=== PATIENT | female | born 1965 | race Two or more races ===

== ENCOUNTER 2025-02-21 05:59 | Emergency (ER) | payer OTHER, SELFPAY ==
--- NOTE | ~2025-02-21 | XR_ITS ---
EXAMINATION: XR KNEE 4 OR MORE VIEWS LEFT HISTORY: pain COMPARISON: There are no prior studies available for comparison. FINDINGS: Five views of the left knee are submitted. Osseous mineralization is normal. There is no fracture or dislocation. There is mild narrowing of the medial patellofemoral compartments. The soft tissues are unremarkable. There is no joint effusion. XR/XR knee LT 4V IMPRESSION: Mild narrowing of the medial and patellofemoral compartments. Electronically signed by: Richard Machado MD 02/21/2025 08:35 AM EDT
--- NOTE | ~2025-02-21 | CT_ITS ---
EXAMINATION: CT HEAD WITHOUT IV CONTRAST HISTORY: worsening headaches. TECHNIQUE: Unenhanced helical CT of the head was performed per standard departmental protocol. Coronal and sagittal reformats of the head were also evaluated. One or more of the following techniques was used for dose reduction: Automated exposure control, adjustment of the mA and/or kV according to patient size, use of iterative reconstruction technique. DLP: 710 mGy-cm COMPARISON: There are no prior studies available for comparison. FINDINGS: BRAIN: The brain parenchyma is unremarkable. There is normal perdomo/white differentiation. The ventricular system is normal in size and configuration. There is no mass effect or midline shift. No intra- or extra-axial fluid collections are identified. SINUSES: The visualized paranasal sinuses are clear. The mastoid air cells and middle ear cavities are well pneumatized. ORBITS: The visualized orbits are unremarkable. BONES/SOFT TISSUES: The extracranial soft tissues are unremarkable. The calvarium is intact. No suspicious lytic or sclerotic lesions. CT/CT head/brain wo IV con IMPRESSION: Unremarkable unenhanced head CT. Electronically signed by: Richard Machado MD 02/21/2025 08:07 AM EDT
[2025-02-21 06:04] VITALS: BP 141/80; PULSE 59; RESP 20; TEMP 36.4; O2SAT 98; BMI 36.7
--- NOTE | 2025-02-21 07:09 | ED_ITS ---
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 She denies trauma, fevers, weakness. Sometimes the pain is so bad she feels her arm tingling. She has not had a fever, rash, no travel and no tick bites reported. She came today as the pain was worsening. She notes the pain is sharp at times and comes and goes. She feels it makes her head hurt on the L side and then her eye has a lot of pain. No vision changes reported. complaint: L body side pain Onset (ago): month(s) (1) Location: head, left, upper extremity and lower extremity Radiation: distal Severity: moderate Quality: aching and constant Pain Consistency: intermittent Relieving factors: none Exacerbating factors: movement Associated symptoms: headaches Treatments prior to arrival: other (tylenol) Related Data Previous Rx's ?Medication ?Instructions ?Recorded methocarbamol 500 mg tablet 500 mg PO TID PRN muscle s pasm #20 02/21/25 tabs Allergies Allergy/AdvReac Type Severity Reaction Status Date / Time No Known Allergies Allergy Verified 02/21/25 06:05 Review of Systems 2 Review of Systems: Constitutional : No Fever, No Chills, No Fatigue ENT/Mouth : No sore throat, No Rhinorrhea Eyes: No Eye Pain, No Swelling, No Redness Cardiovascular : No Chest Pain, No SOB, No Dyspnea on Exertion Respiratory : No Cough, No Sputum Gastrointestinal : No Nausea, No Vomiting, No Diarrhea, No abdominal Pain Genitourinary : No Dysuria, No Urinary Frequency, No Hematuria, Musculoskeletal : pos joint pain, No Myalgias, No Joint Swelling Skin : No Skin Lesions, No rash Neuro : No Weakness, No Numbness, No Dizziness, positive Headache Psych : No Anxiety/Panic, No Depression All other systems reviewed and are negative PMFSH Past Medical History Attestation statement: The following information was validated with the patient. Source: old records reviewed Medical History (Updated 02/21/25 @ 08:19 by Rylee Ivey DO) Arthritis GERD (gastroesophageal reflux disease) HTN (hypertension) Social History Social History (Updated 02/21/25 @ 07:57 by Rylee Ivey DO) Patient Tobacco Use Status: Never used Tobacco Smoked in Last 30 Days: No Use of substances other than those prescribed or required for medical reasons: No Advance Directives: No Advance Directives Information Provided: No Do you have a plan to hurt others: No Plan Physical Exam ED Vital Signs: Vital Signs - 24 hr 02/21/25 06:04 Temperature 97.6 F Pulse Rate 59 Respiratory Rate 20 Blood Pressure 141/80 H Pulse Oximetry 98 Oxygen Delivery Method Room Air BMI result Body Mass Index 36.7 Appearance: Alert. Oriented X3. No acute distress. Eyes: Pupils equal, round and reactive to light. ENT: Pharynx normal. Neck: Normal inspection. Neck supple. CVS: Normal heart rate and rhythm. Pulses normal. Respiratory: No respiratory distress. Breath sounds normal. Abdomen: Soft and nontender. Skin: Skin warm and dry. Normal skin color. Normal skin turgor. Extremities: No lower extremity edema. L pain around L knee no effusion, warmth, redness distal NV intact, no calf pain Neuro: Oriented X 3. No motor deficit. No sensory deficit. CN2-12 intact NIH Stroke Scale Internal: Initial- Upon Arrival Level of Consciousness: Alert Level of Consciousness Questions: Answers both questions correctly Level of Consciousness Commands: Performs both tasks correctly Best Gaze: Normal Visual: No visual loss Facial Palsy: Normal Motor Arm (Right): No drift Motor Arm (Left): No drift Motor Leg (Right): No drift Motor Leg (Left): No drift Limb Ataxia: Absent Sensory: Normal Best Language: No aphasia Dysarthia: Normal Extinction and Inattention: No abnormality Score: 0 Medical Decision Making Medical Decision Making MDM Narrative: 59 yo female with PMH of arthritis, GERD, HTN, who presents with c/o L sided headaches, L arm and leg pain but he is NV intact at this time she denies infections, numbness, weakness on today exams and her NIH is 0. At this time I am going to obtain labs, xray of L knee, CT head for mass. She has no calf pain or leg swelling and it is her entire L side of body which is not typical for DVT. She has pulses in both upper and lower ext. At this time possible mass IC, arthritis, will obtain work up and start on methocarbamol if negative Differential Diagnosis Differential Diagnoses: The differential diagnosis associated with the presentation includes arthritis, mass, muscle spasm Admission/Observation Consideration of admission/observation: Escalation of care including admission/observation considered work up reassuring, stable for DC Lab Data [facility] Lab Attestation statement: I reviewed the patient's lab results. 02/21/25 07:39 02/21/25 07:39 Labs: Lab Results 02/21/25 Range/Units 07:39 WBC 3.4 L (4.8-10.8) X10*3/uL RBC 4.69 (4.20-5.50) X10*6/uL Hgb 14.6 (12.0-16.0) g/dl Hct 42.9 (37.0-47.0) % MCV 91.5 (80.0-98.0) fL MCH 31.1 (27.0-33.0) pg MCHC 34.0 (31.0-35.0) g/dl RDW 12.5 (11.0-16.0) % Plt Count 189 (160-400) X10*3/uL MPV 10.4 (9.4-12.3) fL Immature Gran % (Auto) 0.0 (0.0-0.4) % Neut % (Auto) 35.0 L (45-73) % Lymph % (Auto) 51.9 H (20-40) % [place] % (Auto) 9.2 (2-11) % Eos % (Auto) 3.0 (0-4) % Baso % (Auto) 0.9 (0-2) % Lymph # (Auto) 1.8 (1.2-4.9) X10*3/uL [place] # (Auto) 0.3 (0.1-1.2) X10*3/uL Eos # (Auto) 0.1 (0.0-0.4) X10*3/uL Baso # (Auto) 0.0 (0.0-0.2) X10*3/uL Abs Immat Gran (auto) 0.00 (0.00-0.03) X10*3/uL Absolute Neuts (auto) 1.2 L (2.0-8.3) x10*3/uL Absolute Nucleated RBC 0.000 (0.0-0.012) X10*3/uL Nucleated RBC % (auto) 0.0 (0.0-0.2) /100WBC Sodium 142 (135-145) mmol/L Potassium 3.9 (3.3-5.1) mmol/L Chloride 109 H (96-108) mmol/L Carbon Dioxide 25 (22-29) mmol/L Anion Gap 12 (12-20) BUN 14 (9-16) mg/dL Creatinine 0.64 (0.5-1.4) mg/dL Estim Creat Clear Calc 108.3 Estimated GFR > 60 Random Glucose 101 (60-115) mg/dL Calcium 9.3 (8.4-10.2) mg/dL Magnesium 2.1 (1.6-2.6) mg/dL Total Bilirubin 0.7 (0.0-1.0) mg/dL Direct Bilirubin 0.2 (0.0-0.5) mg/dL AST 27 (5-31) U/L ALT 26 (0-31) U/L Alkaline Phosphatase 65 (39-117) U/L Total Creatine Kinase 112 (26-140) U/L Total Protein 7.1 (6.5-8.0) g/dL Albumin 4.6 (3.5-5.0) g/dL Independent Interpretation I performed an independent interpretation of an: Plain X-Ray (no trauma) and CT Scan (no mass) Radiology Impression Discussion of test interpretation with radiology: I have reviewed the radiologist's reading. External Record Review External record reviewed: Outpatient record Prescription Management I considered prescription management with: Pain Medication Discharge Plan Discharge Clinical Impression: Pain of left side of body Patient Disposition: Home, Self-Care Instructions: Musculoskeletal Pain (ED), Knee Pain (ED) Additional Instructions: xray and CT scan normal labs reassuring rest and stay hydrated follow up with your doctor is not better in 2 weeks return for any worsening symptoms or concerns. FINDINGS: Five views of the left knee are submitted. Osseous mineralization is normal. There is no fracture or dislocation. There is mild narrowing of the medial patellofemoral compartments. The soft tissues are unremarkable. There is no joint effusion. XR/XR knee LT 4V IMPRESSION: Mild narrowing of the medial and patellofemoral compartments. Prescriptions: New methocarbamol 500 mg tablet 500 mg PO TID PRN (Reason: muscle spasm) Qty: 20 0RF Print Language: Yi
[2025-02-21 07:45] LABS: MANUAL DIFF FLAG NO
[2025-02-21 07:50] LABS: Basophils Percent Auto 0.9 % (0-2); Eosinophils Absolute Auto 0.1 X10*3/uL (0.0-0.4); Hematocrit 42.9 % (37.0-47.0); Hemoglobin 14.6 g/dl (12.0-16.0); Lymphocytes Absolute Auto 1.8 X10*3/uL (1.2-4.9); Lymphocytes Percent Auto 51.9 % (20-40); Mean Corpuscular Hemoglobin 31.1 pg (27.0-33.0); Mean Corpuscular Volume 91.5 fL (80.0-98.0); Mean Platelet Volume 10.4 fL (9.4-12.3); Monocytes Absolute Auto 0.3 X10*3/uL (0.1-1.2); Monocytes Percent Auto 9.2 % (2-11); Neutrophils Absolute Auto 1.2 x10*3/uL (2.0-8.3); Platelet Count 189 X10*3/uL (160-400); Red Blood Count 4.69 X10*6/uL (4.20-5.50); Red Cell Distribution Width 12.5 % (11.0-16.0); White Blood Count 3.4 X10*3/uL (4.8-10.8)
[2025-02-21 08:03] LABS: Alanine Aminotransferase 26 U/L (0-31); Albumin Level 4.6 g/dL (3.5-5.0); Alkaline Phosphatase 65 U/L (39-117); Anion Gap 12 (12-20); Aspartate Amino Transferase 27 U/L (5-31); Bilirubin Direct 0.2 mg/dL (0.0-0.5); Bilirubin Total 0.7 mg/dL (0.0-1.0); Blood Urea Nitrogen 14 mg/dL (9-16); Calcium 9.3 mg/dL (8.4-10.2); Carbon Dioxide 25 mmol/L (22-29); Chloride 109 mmol/L (96-108); Creatinine Clr Calc Pharmacy 108.3; Estimated Glomerular Filt Rate > 60; Glucose Random 101 mg/dL (60-115); Magnesium 2.1 mg/dL (1.6-2.6); Potassium 3.9 mmol/L (3.3-5.1); Sodium 142 mmol/L (135-145); Total Protein 7.1 g/dL (6.5-8.0)
[2025-02-21 08:49] VITALS: BP 126/71; PULSE 53; RESP 18; TEMP 36.6; O2SAT 96
== END 2025-02-21 08:50 | disposition home or self-care (01) ==
PROVIDERS: Emergency Provider Emergency Medicine
DX: M79.602 Pain in left arm (principal); M79.605 Pain in left leg; R51.9 Headache, unspecified; R29.700 NIHSS score 0; I10 Essential (primary) hypertension
CPT/HCPCS: 36415; 70450; 73564; 80048; 80076; 82550; 83735; 85025; 99283; 99284

== ENCOUNTER → 2025-02-21 07:30 | Outpatient (BNV) | payer OTHER, SELFPAY | PROVIDERS: Emergency Provider Emergency Medicine; Visit Provider Radiology Diagnostic Radiology | DX: R51.9 Headache, unspecified (principal); M25.562 Pain in left knee | CPT/HCPCS: 70450; 73564 ==

== ENCOUNTER 2025-03-01 07:49 | Emergency (ER) | payer OTHER, SELFPAY ==
--- NOTE | ~2025-03-01 | US_ITS ---
EXAMINATION: US TRIPLEX LOWER EXTREMITY, LEFT CLINICAL INFORMATION: Pain and edema, left lower extremity. COMPARISON: None available. TECHNIQUE: Color-flow triplex imaging with spectral analysis and compression Doppler were performed on the left lower extremity. FINDINGS: Respiratory variation, normal compression and augmented flow are present in the interrogated left common femoral vein, superficial femoral vein, profunda femoral vein, popliteal vein and midcalf peroneal and posterior tibial venous segments . There is no Johnson's cyst. US/US venous duplex LE IMPRESSION: No acute deep venous thrombosis interrogated veins, left lower extremity. Negative DVT. Electronically signed by: Stevie Rodriguez MD 03/01/2025 09:41 AM EDT
--- NOTE | ~2025-03-01 | CT_ITS ---
EXAMINATION: CT ABDOMEN AND PELVIS WITH CONTRAST CLINICAL INFORMATION: Left lower quadrant pain. COMPARISON: None available. TECHNIQUE: Multidetector volumetric images were obtained from the superior aspect of the liver through the pubic symphysis following administration 85 mL of Omnipaque 350 intravenous contrast. Sagittal and coronal reformatted images were obtained on the technologist's workstation. Oral contrast: No This CT examination was performed using dose optimization techniques as appropriate, variously including the following: *Automated exposure control *Adjustment of mA and/or kV according to patient size (this includes techniques or standardized protocols for targeted exams where dose is matched to indication/reason for exam; i.e. extremities or head) *Use of iterative reconstruction technique DLP: 703 mGy centimeter. FINDINGS: LUNG BASES: Pulmonary patchy groundglass. LIVER, GALLBLADDER, AND BILIARY TREE: Liver measures 16 cm. No focal mass. Portal vein, hepatic veins and intrahepatic portion of the IVC are patent. No pericholecystic fluid collection or gallbladder wall again. No intrahepatic or extrahepatic biliary ductal dilatation. PANCREAS: No focal mass. No peripancreatic fluid collection. No main pancreatic ductal dilatation. SPLEEN: 8 cm. No focal mass. ADRENAL GLANDS: No nodular lesion. KIDNEYS AND URETERS: 2 mm nonobstructing calculus, left kidney. No hydronephrosis in either kidney. No renal mass. Normal enhancement pattern of the renal parenchyma. BLADDER: Fluid-filled. GASTROINTESTINAL TRACT: There is a focal segmental asymmetric intestinal wall thickening with pericolonic edema pattern and likely diverticula involving the proximal to mid descending colon. No pneumoperitoneum. No peripheral enhancing fluid collection. No ascites. No intestinal obstruction pattern. Numerous diverticula throughout the large intestine. Appendix is normal. ABDOMINAL WALL: No gross umbilical hernia. LYMPH NODES: No gross lymphadenopathy. VASCULAR: Throughout the abdominal aorta wall and iliac arteries. No aneurysm or dissection, abdominal aorta. PELVIC VISCERA: No gross masses. OSSEOUS STRUCTURES: Mild multilevel spondylosis. No acute fracture or gross listhesis. No lytic or blastic lesions. CT/CT abdomen pelvis w IV con IMPRESSION: Acute nonperforated/noncomplicated diverticulitis, proximal to mid descending colon. Nonobstructing nephrolithiasis, left kidney. Fleischner guidelines were followed. Electronically signed by: Stevie Rodriguez MD 03/01/2025 12:16 PM EDT
[2025-03-01 08:01] VITALS: BP 121/87; PULSE 68; RESP 16; TEMP 36.8; O2SAT 96; BMI 36.1
--- NOTE | 2025-03-01 08:02 | ED_ITS ---
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 She reports that she had a bowel movement yesterday which was normal for her. Denies any black or bloody stool. Denies any nausea, vomiting, burning with urination. She also complains of left leg pain for which she was seen here on 02/21/2025. She reports that her left leg pain is still bothering her but she is here today primarily for the abdominal pain Her pain is currently 9/10 Related Data Previous Rx's ?Medication ?Instructions ?Recorded methocarbamol 500 mg tablet 500 mg PO TID PRN muscle s pasm #20 02/21/25 tabs amoxicillin 875 mg-potassium 1 tab PO Q12H #14 tabs clavulanate 125 mg tablet Allergies Allergy/AdvReac Type Severity Reaction Status Date / Time No Known Allergies Allergy Verified 03/01/25 08:02 Review of Systems Constitutional: Denies body ache(s), Denies chills and Denies fever(s) Eyes: Denies blurry vision Denies dizziness and Denies dry mouth Cardiovascular: Denies chest pain and Denies dyspnea on exertion Respiratory: Denies cough and Denies dyspnea on exertion Gastrointestinal: Reports abdominal pain, Denies melena, Denies hematochezia, Denies diarrhea, Denies nausea and Denies vomiting Genitourinary: Denies hematuria, Denies dysuria and Denies pelvic pain Musculoskeletal: Denies back pain Skin/Breast: Denies rash Denies dizziness Psychiatric: Denies anxiety PMF Past Medical History Medical History (Updated 03/01/25 @ 12:30 by Florin Chen) Arthritis GERD (gastroesophageal reflux disease) HTN (hypertension) Social History Social History (Updated 02/21/25 @ 07:57 by Rylee Ivey DO) Patient Tobacco Use Status: Never used Tobacco Advance Directives: No Advance Directives Information Provided: Yes Do you have a plan to hurt others: No Plan Physical Exam ED Vital Signs: Vital Signs - 24 hr 03/01/25 08:01 Temperature 98.3 F Pulse Rate 68 Respiratory Rate 16 Blood Pressure 121/87 Pulse Oximetry 96 Oxygen Delivery Method Room Air BMI result Body Mass Index 36.1 Const General: healthy appearing, comfortable, no acute distress, alert and awake Nutritional Appearance: well nourished Orientation/consciousness: patient oriented x3 HENMT Head: Yes normocephalic and Yes atraumatic Eyes Eyelids: Yes eyelids normal Conjunctivae: conjunctivae normal Sclerae: sclerae normal Corneas: corneas normal Pupils: Equal, round and reactive pupils present EOM: EOMs intact bilaterally Neck Neck: Yes full ROM Resp Effort & Inspection: normal respiratory effort, able to speak in complete sentences and not labored Cardio Rate: regular rate Rhythm: regular rhythm GI Inspection: No distended Palpation (GI): Soft to palpation, not firm, Tenderness to palpation present (GI) in the LLQ and in the LUQ; not in the epigastrum, not in the RLQ, not in the RUQ, not at McBurney's point, not periumbilically and not suprapubicly, no guarding and not rigid Skin General skin exam: elasticity normal Neuro General: patient oriented x3 Cranial nerves: Yes Equal, round and reactive pupils present and Yes Bilaterally intact EOM present Cognition (Neuro): normal cognition Extrem Other: Moving all extremities well without any obvious deformities Course Course Course Narrative: 59 yo female with PMH of HTN, GERD, arthritis here with c/o LUQ pain x 1 days but no fevers, dysuria, n/v/d, no constipation, no recent travel or procedures. She could not sleep last night. She notes it is worse with inspiration. At this time will obtain labs, UA, EKG, defer imaging to primary provider this is a RAPID medical screening exam the rest of the history and physical exam is to be done by the main provider. ZEINAB 03/01/25 803am Reevaluation(s) Reevaluation #1: CT scan consistent with acute uncomplicated diverticulitis. We will treat with Augmentin and a liquid diet. Time: 12:29 Medical Decision Making Medical Decision Making MDM Narrative: 59-year-old female with a past medical history as above presents for evaluation of left-sided abdominal pain since last night. She is tender in the left lower abdomen but her abdomen is soft, nondistended. Less likely surgical abdomen. The patient has no urinary symptoms, renal function within normal limits less likely obstructive uropathy or pyelonephritis. There was no leukocytosis or left shift, less likely infectious process. Clinically I feel the patient's pain is most likely related to constipation but can not entirely rule out diverticulitis. She has not had any recent imaging of the abdomen and pelvis we will get a CT scan of the abdomen pelvis. The patient is postmenopausal Differential Diagnosis Differential Diagnoses: The differential diagnosis associated with the presentation includes As above Lab Data MDM Lab Attestation statement: I reviewed the patient's lab results. Acidosis or anemia. Normal platelet count. No significant electrolyte abnormalities warranting intervention. Renal function normal limits 03/01/25 08:21 03/01/25 08:21 Labs: Lab Results 03/01/25 Range/Units 08:21 WBC 6.8 (4.8-10.8) X10*3/uL RBC 4.70 (4.20-5.50) X10*6/uL Hgb 14.8 (12.0-16.0) g/dl Hct 41.6 (37.0-47.0) % MCV 88.5 (80.0-98.0) fL MCH 31.5 (27.0-33.0) pg MCHC 35.6 H (31.0-35.0) g/dl RDW 12.3 (11.0-16.0) % Plt Count 192 (160-400) X10*3/uL MPV 10.4 (9.4-12.3) fL Immature Gran % (Auto) 0.1 (0.0-0.4) % Neut % (Auto) 64.1 (45-73) % Lymph % (Auto) 25.8 (20-40) % [place] % (Auto) 8.0 (2-11) % Eos % (Auto) 1.6 (0-4) % Baso % (Auto) 0.4 (0-2) % Lymph # (Auto) 1.8 (1.2-4.9) X10*3/uL [place] # (Auto) 0.5 (0.1-1.2) X10*3/uL Eos # (Auto) 0.1 (0.0-0.4) X10*3/uL Baso # (Auto) 0.0 (0.0-0.2) X10*3/uL Abs Immat Gran (auto) 0.01 (0.00-0.03) X10*3/uL Absolute Neuts (auto) 4.3 (2.0-8.3) x10*3/uL Absolute Nucleated RBC 0.000 (0.0-0.012) X10*3/uL Nucleated RBC % (auto) 0.0 (0.0-0.2) /100WBC D-Dimer High Sensitivty 161 NG/ML Sodium 139 (135-145) mmol/L Potassium 3.7 (3.3-5.1) mmol/L Chloride 107 (96-108) mmol/L Carbon Dioxide 25 (22-29) mmol/L Anion Gap 11 L (12-20) BUN 14 (9-16) mg/dL Creatinine 0.74 (0.5-1.4) mg/dL Estim Creat Clear Calc 92.7 Estimated GFR > 60 Random Glucose 102 (60-115) mg/dL Calcium 9.1 (8.4-10.2) mg/dL Magnesium 2.2 (1.6-2.6) mg/dL Total Bilirubin 0.9 (0.0-1.0) mg/dL Direct Bilirubin 0.3 (0.0-0.5) mg/dL AST 24 (5-31) U/L ALT 22 (0-31) U/L Alkaline Phosphatase 68 (39-117) U/L Troponin I High Sens < 2.7 (<3.5-17.0) ng/L Total Protein 7.3 (6.5-8.0) g/dL Albumin 4.7 (3.5-5.0) g/dL Lipase 27 (8-78) U/L Radiology Impression Discussion of test interpretation with radiology: I have reviewed the radiologist's reading. Radiologist Impression: FINDINGS: LUNG BASES: Pulmonary patchy groundglass. LIVER, GALLBLADDER, AND BILIARY TREE: Liver measures 16 cm. No focal mass. Portal vein, hepatic veins and intrahepatic portion of the IVC are patent. No pericholecystic fluid collection or gallbladder wall again. No intrahepatic or extrahepatic biliary ductal dilatation. PANCREAS: No focal mass. No peripancreatic fluid collection. No main pancreatic ductal dilatation. SPLEEN: 8 cm. No focal mass. ADRENAL GLANDS: No nodular lesion. KIDNEYS AND URETERS: 2 mm nonobstructing calculus, left kidney. No hydronephrosis in either kidney. No renal mass. Normal enhancement pattern of the renal parenchyma. BLADDER: Fluid-filled. GASTROINTESTINAL TRACT: There is a focal segmental asymmetric intestinal wall thickening with pericolonic edema pattern and likely diverticula involving the proximal to mid descending colon. No pneumoperitoneum. No peripheral enhancing fluid collection. No ascites. No intestinal obstruction pattern. Numerous diverticula throughout the large intestine. Appendix is normal. ABDOMINAL WALL: No gross umbilical hernia. LYMPH NODES: No gross lymphadenopathy. VASCULAR: Throughout the abdominal aorta wall and iliac arteries. No aneurysm or dissection, abdominal aorta. PELVIC VISCERA: No gross masses. OSSEOUS STRUCTURES: Mild multilevel spondylosis. No acute fracture or gross listhesis. No lytic or blastic lesions. CT/CT abdomen pelvis w IV con IMPRESSION: Acute nonperforated/noncomplicated diverticulitis, proximal to mid descending colon. Nonobstructing nephrolithiasis, left kidney. Fleischner guidelines were followed. Electronically signed by: Stevie Rodriguez MD 03/01/2025 12:16 PM EDT Medications Administered Discontinued Medications Generic Name Dose Route Start Last Admin Trade Name Freq PRN Reason Stop Dose Admin Iohexol 100 ml 03/01/25 11:59 03/01/25 11:59 Iohexol 350 Mg/Ml 100 Ml Infus..Btl IV 03/01/25 12:00 85 ml ONCE ONE Administration Ketorolac Tromethamine 15 mg 03/01/25 11:26 03/01/25 12:02 Ketorolac Tromethamine 15 Mg/Ml Vial IVPUSH 03/01/25 11:27 15 mg ONCE ONE Administration Discharge Plan Discharge Clinical Impression: Diverticulitis Patient Disposition: Home, Self-Care Instructions: Diverticulitis (ED), Diverticulitis Diet (ED) Additional Instructions: Your CT scans shows diverticulitis of the left lower abdomen/:. The treatment for this is a liquid diet and therefore I recommend a liquid diet for the next 2-3 days. You may also use Augmentin twice daily for 1 week to help treat the infection You may use ibuprofen or Tylenol as needed for pain Prescriptions: New amoxicillin-pot clavulanate 875-125 mg tablet 1 tab PO Q12H Qty: 14 0RF No Action methocarbamol 500 mg tablet 500 mg PO TID PRN (Reason: muscle spasm) Qty: 20 0RF Print Language: Qatari
--- NOTE | 2025-03-01 08:04 | ECG_ITS ---
Test Reason : ABD PAIN Blood Pressure : */* mmHG Vent. Rate : 75 BPM Atrial Rate : 75 BPM P-R Int : 152 ms QRS Dur : 68 ms QT Int : 376 ms P-R-T Axes : 31 8 4 degrees QTcB Int : 419 ms Normal sinus rhythm Cannot rule out Anterior infarct , age undetermined Abnormal ECG No previous ECGs available Referred By: Rylee Ivey Electronically Signed By: Ketan Gomez
[2025-03-01 08:26] LABS: Hematocrit 41.6 % (37.0-47.0); Hemoglobin 14.8 g/dl (12.0-16.0); Imm Gran Abs Auto 0.01 X10*3/uL (0.00-0.03); Imm Gran Pct Auto 0.1 % (0.0-0.4); Lymphocytes Absolute Auto 1.8 X10*3/uL (1.2-4.9); MANUAL DIFF FLAG NO; Mean Corpuscular HGB Conc 35.6 g/dl (31.0-35.0); Mean Corpuscular Hemoglobin 31.5 pg (27.0-33.0); Mean Corpuscular Volume 88.5 fL (80.0-98.0); NRBC Abs Auto 0.000 X10*3/uL (0.0-0.012); NRBC Pct Auto 0.0 /100WBC (0.0-0.2); Platelet Count 192 X10*3/uL (160-400); Red Blood Count 4.70 X10*6/uL (4.20-5.50); White Blood Count 6.8 X10*3/uL (4.8-10.8)
[2025-03-01 08:38] LABS: D Dimer High Sensitivity 161 NG/ML
[2025-03-01 08:40] LABS: Alanine Aminotransferase 22 U/L (0-31); Albumin Level 4.7 g/dL (3.5-5.0); Alkaline Phosphatase 68 U/L (39-117); Anion Gap 11 (12-20); Aspartate Amino Transferase 24 U/L (5-31); Blood Urea Nitrogen 14 mg/dL (9-16); Calcium 9.1 mg/dL (8.4-10.2); Carbon Dioxide 25 mmol/L (22-29); Chloride 107 mmol/L (96-108); Creatinine Clr Calc Pharmacy 92.7; Estimated Glomerular Filt Rate > 60; Lipase 27 U/L (8-78); Magnesium 2.2 mg/dL (1.6-2.6); Potassium 3.7 mmol/L (3.3-5.1); Sodium 139 mmol/L (135-145); Total Protein 7.3 g/dL (6.5-8.0)
[2025-03-01 08:50] LABS: Troponin-I High Sensitivity < 2.7 ng/L (<3.5-17.0)
[2025-03-01] MEDS: iohexoL 350 MG/ML 100 ML INFUS..BTL IV (11:59)
[2025-03-01 13:00] VITALS: BP 127/71; PULSE 77; RESP 18; TEMP 36.6; O2SAT 94
== END 2025-03-01 13:01 | disposition home or self-care (01) ==
PROVIDERS: Emergency Medicine; Emergency Provider Emergency Medicine Emergency Medical Services
DX: K57.32 Diverticulitis of large intestine without perforation or abscess without bleeding (principal); R10.32 Left lower quadrant pain; M79.605 Pain in left leg
CPT/HCPCS: 36415; 74177; 80048; 80076; 83690; 83735; 84484; 85025; 85379; 93005; 93971; 96374; 99283; 99284; J1885; Q9967

== ENCOUNTER → 2025-03-01 08:04 | Outpatient (BNV) | payer OTHER, SELFPAY | PROVIDERS: Emergency Provider Emergency Medicine Emergency Medical Services; Visit Provider Internal Medicine Cardiovascular Disease | DX: R94.31 Abnormal electrocardiogram [ECG] [EKG] (principal); R10.9 Unspecified abdominal pain | CPT/HCPCS: 93010 ==

== ENCOUNTER → 2025-03-01 08:05 | Outpatient (BNV) | payer OTHER, SELFPAY | PROVIDERS: Visit Provider Radiology Diagnostic Radiology | DX: K57.32 Diverticulitis of large intestine without perforation or abscess without bleeding (principal); N20.0 Calculus of kidney; M79.662 Pain in left lower leg; R60.0 Localized edema | CPT/HCPCS: 74177; 93971 ==